=== PATIENT | female | born 1990 | race Caucasian/White ===

== ENCOUNTER 2023-09-26 05:50 | Day surgery (SDC) | payer BC ==
[~2023-09-26] VITALS: Ht 172.7 cm; Wt 99.8 kg
[2023-09-26 06:41] VITALS: O2SAT 98
[2023-09-26] MEDS ORDERED: CEFAZOLIN SOD 2 GM in D5W 50 ML IV ONE (07:00)
[2023-09-26] MEDS ORDERED: SCOPOLAMINE HYDROBROMIDE 1 MG PATCH .72 H (TRANSDERM-SCOP) TD ONE ×2 (07:32→07:45)
[2023-09-26] MEDS ORDERED: ACETAMINOPHEN I.V. 1000 MG 100 ML IV ONE (07:37)
[2023-09-26] MEDS ORDERED: MIDAZOLAM HCL 2 MG/2 ML VIAL (VERSED) ONE (07:37)
[2023-09-26] MEDS ORDERED: fentaNYL CITRATE/PF 100 MCG/2 ML AMP ONE (07:37)
[2023-09-26] MEDS ORDERED: fentaNYL CITRATE/PF 100 MCG/2 ML AMP IVP PRN (07:45)
[2023-09-26] MEDS ORDERED: LR 1,000 ML IV ONE (07:45)
[2023-09-26] MEDS ORDERED: HYDROmorphone 1 MG/ML INJ. CARTRIDGE IVP PRN ×2 (07:45)
[2023-09-26] MEDS ORDERED: ONDANSETRON HCL 4 MG/2 ML VIAL IVP PRN (07:45)
[2023-09-26] MEDS ORDERED: LR 1,000 ML IV.SOLN IV ONE (09:02)
[2023-09-26] MEDS ORDERED: PROPOFOL 200MG/ 20ML VIAL (DIPRIVAN) IV ONE (09:02)
[2023-09-26] MEDS ORDERED: SUGAMMADEX SODIUM 200 MG/2 ML VIAL IV ONE (09:02)
[2023-09-26] MEDS ORDERED: DEXAMETHASONE SOD PHOSPHATE 4 MG/ML VIAL ONE (09:02)
[2023-09-26] MEDS ORDERED: ONDANSETRON HCL 4 MG/2 ML VIAL ONE (09:02)
[2023-09-26] MEDS ORDERED: NS IRRIG SOLN 1000 ML IR ONE (09:02)
[2023-09-26] MEDS ORDERED: BUPIVACAINE /PF 0.25% 30 ML VIAL INJ ONE (09:02)
[2023-09-26] MEDS ORDERED: SEVOFLURANE 15 MIN GAS INH ONE (09:02)
[2023-09-26] MEDS ORDERED: WATER FOR IRRIGATION,STERILE 1,000 ML IRRIG.SOLN IR ONE (09:02)
[2023-09-26] MEDS ORDERED: LIDOCAINE 2%, 20 ML MDV ONE (09:02)
[2023-09-26] MEDS ORDERED: ROCURONIUM BROMIDE 10 MG/ML (ZEMURON) ONE (09:02)
[2023-09-26 11:56] VITALS: BP_SYST 111; PULSE 78; RESP 18; TEMP 97.8
== END 2023-09-26 12:04 | disposition home or self-care (01) ==
LOC: SMU 05:50 → SDS 05:50
PROVIDERS: ATTEND Specialist
DX: Z30.2 Encounter for sterilization (principal); N92.6 Irregular menstruation, unspecified; N84.0 Polyp of corpus uteri; Z88.6 Allergy status to analgesic agent; Z88.8 Allergy status to other drugs, medicaments and biological substances
CPT/HCPCS: 87081; 58661; 58301; 88302; 88305; J3490 ×2; J0690; J1100; J2001; J3465; J2405; J2704; J3010; J7060; J7120; C1727; J0131